=== PATIENT | male | born 1950 | race Caucasian/White ===

== ENCOUNTER 2017-10-25 08:24 | Emergency (ER) | payer OTHER, MEDICARE ==
[~2017-10-25] VITALS: Ht 167.6 cm; Wt 83.9 kg
[2017-10-25 08:27] VITALS: BP 174/98
--- NOTE | 2017-10-25 09:26 | ED MVC/FALL/TRAUMA COMPLAINT ---
History of Present Illness General Chief Complaint: Laceration Procedure Stated Complaint: NOSE LAC Source: patient Exam Limitations: no limitations Vital Signs & Intake/Output Vital Signs & Intake/Output Vital Signs Date Time Temp Pulse Resp B/P B/P Pulse O2 O2 Flow FiO2 Mean Ox Delivery Rate 10/25 0827 98.6 60 18 174/98 98 Room Air Allergies Coded Allergies: ibuprofen (Severe, BLACK OUT 10/25/17) shellfish derived (UNKNOWN 10/25/17) Reconcile Medications Cephalexin (Keflex) 500 MG CAPSULE 1 CAP PO BID NASAL FRACTURE/LACERATION Triage Note: 66 YO MALE TO TRIAGE FOR EVAL OF LACERATION TO NOSE. STATES HE TRIPPED THIS AM AND LANDED ON HIS NOSE AND "HEARD A CRUNCH" PT NOTED WITH LACERATION ON NOSE, BLEEDING CONTROLLED. DENIES PAIN. Triage Nurses Notes Reviewed? yes Onset: Abrupt Duration: constant Timing: single episode today Severity: mild Severity Numbers: 3 HPI: Patient is a 66-year-old male who since emergency room saying that today he got out of bed trying to put his shorts on and abruptly lost his balance and fell for STRIKING his face and nose to the floor. Patient acute onset of localized nose pain and swelling and bleeding had occurred. Denies any loss of consciousness denies any neck or back pain or extremity pain. Tetanus is up-to- date. Patient denies any preceding episode of lightheaded sensation or dizziness. (Adonay Albarran) Past History Travel History Traveled to [place] past 21 day No Medical History Any Pertinent Medical History? see below for history Neurological: NONE EENT: NONE Cardiovascular: NONE Respiratory: NONE Gastrointestinal: NONE Hepatic: NONE Renal: NONE Musculoskeletal: NONE Psychiatric: NONE Endocrine: NONE, hypothyroidism Blood Disorders: NONE Cancer(s): NONE CURTAIN MENDER/Reproductive: NONE Surgical History Surgical History: non-contributory Psychosocial History What is your primary language Slovenian Tobacco Use: Never used Family History Hx Contributory? No (Adonay Albarran) Review of Systems Review of Systems Constitutional: Reports: no symptoms. Eyes: Reports: no symptoms. Ears, Nose, Throat, Mouth: Reports: see HPI. Respiratory: Reports: no symptoms. Cardiovascular: Reports: no symptoms. Gastrointestinal/Abdominal: Reports: no symptoms. Genitourinary: Reports: no symptoms. Musculoskeletal: Reports: see HPI. Skin: Reports: see HPI. Neurological/Psychological: Reports: no symptoms. All Other Systems: Reviewed and Negative (Shira FRANKLIN,Adonay) Physical Exam Physical Exam General Appearance: no apparent distress, alert, comfortable Head: atraumatic Eyes: Bilateral: normal appearance, PERRL, EOMI. Ears, Nose, Throat, Mouth: hearing grossly normal, moist mucous membrane, Tympanic normal Neck: normal inspection, supple, full range of motion, no midline tenderness Respiratory: no respiratory distress Cardiovascular: regular rate/rhythm Gastrointestinal: normal bowel sounds, soft, non-tender Back: no vertebral tenderness Extremities: normal range of motion Neurologic/Psych: no motor/sensory deficits, awake Diagram Head: 1) Noted mild swelling with 5 mm superficial irregular laceration with adjacent skin avulsion superficial approximate 3 mm 2) Noted right nares dried blood nares are patent Core Measures ACS in differential dx? No CVA/TIA Diagnosis No Sepsis Present: No Sepsis Focused Exam Completed? No (Shira FRANKLIN,Adonay) Progress Differential Diagnosis: C/T/L spine injury, ext injury, ICH, pelvis injury, pnemothorax, spinal cord injury, FRACTURE Plan of Care: Orders Procedure Date/time Status CT HEAD WO IV CONTRAST 10/25 834 Active Nexus criteria ZERO PT DECLINES PAIN MEDICATIONS WHEN OFFERED. L.E.T was initially applied to the nose The nasal bridge was irrigated with sterile water and Betadine was applied for sterile technique then using #3, 6-0 sutures margins were revised patient tolerated well Bacitracin bandage was applied Discussed with patient of the mildly displaced nasal bone fractures, patient on prophylactic would be administered antibiotics. Upon discharge patient looks well no apparent distress has normal steady gait and has no questions patient does live in [place] and he will follow up when he returns He was given copy of CT scan for follow-up Diagnostic Imaging: Viewed by Me: CT Scan. Radiology Impression: acute abnormality Comments: PATIENT: SANTOS CHAN PRESENT AGE: 66 PATIENT ACCOUNT NO: [id number] : 51 LOCATION: [facility] ORDERING PHYSICIAN: Adonay FRANKLIN SERVICE DATE: 10/25/17 EXAM TYPE: CAT - CT MAXILLOFACIAL W/O CON Addendum: EXAMINATION: CT HEAD WITHOUT CONTRAST CLINICAL INFORMATION: Headache status-post trauma. COMPARISON: None TECHNIQUE: Contiguous axial imaging was performed from the skull base to vertex without intravenous administration of contrast. DLP: 1374.38 mGy-cm (head and facial bones) FINDINGS: There is no evidence of acute intracranial hemorrhage or territorial infarction. No abnormal mass effect or midline shift is seen. Garcia to white matter differentiation is well preserved. No extra-axial fluid collections are identified. The ventricles are normal in size. There is no abnormal attenuation within the brain parenchyma. There are carotid calcifications of the skull base vasculature. The osseous structures and soft tissues are normal. The mastoid air cells and visualized portions of the paranasal sinuses are well aerated. IMPRESSION: No acute intracranial pathology. Addendum Signed by: Jose Manuel Thompson MD 10/25/17 1032 EXAMINATION: CT MAXILLOFACIAL WITHOUT CONTRAST CLINICAL INFORMATION: Facial pain status-post trauma. COMPARISON: None TECHNIQUE: Multidetector helical imaging was performed in the axial plane with generation of coronal and sagittal reformatted images. DLP: 1374.38 mGy-cm (head and facial bones) FINDINGS: FRONTAL SINUSES AND DRAINAGE PATHWAYS: Normal. MAXILLARY SINUSES AND DRAINAGE PATHWAYS: There is mild mucosal thickening of the posteromedial left maxillary sinus. The right maxillary sinus appears clear. The bilateral ostiomeatal units appear patent, with the right somewhat narrowed by mucosal thickening. ETHMOID SINUSES: There is mucosal thickening of numerous of the bilateral ethmoid air cells. SPHENOID SINUSES AND DRAINAGE PATHWAYS: Normal. ADDITIONAL RELEVANT FINDINGS: There are slightly displaced bilateral nasal bone fractures. The lamina papyracea are intact. The nasal passages are clear. There is a slight leftward nasal septal deviation. The carotid canals are normally covered by bone. The ethmoid roofs are symmetric. No periapical disease is seen. The TMJs and orbits are normal. The visualized mastoid air cells are clear. IMPRESSION: 1. Mildly displaced bilateral nasal bone fractures are seen. 2. There is mild bilateral ethmoid and left maxillary sinusitis. 3. The bilateral ostiomeatal units appear patent, with the right somewhat narrowed by mucosal thickening. DICTATED BY: Donna CASTRO,Jose Manuel Hoffman DATE/TIME DICTATED:10/25/171004 TURKISH RUBBER:JAMES DATE/TIME TRANSCRIBED:10/25/171004 (Adonay Albarran) Departure Departure Disposition: HOME OR SELF CARE Condition: Stable Clinical Impression Primary Impression: Laceration of nose Secondary Impressions: Fall, Nasal bone fracture Referrals: Patient Has No Primary Care Dr (PCP/Family) Additional Instructions: As discussed begin [id number] Tylenol or Motrin for pain and inflammation, apply bacitracin to the region once a day for the following 4 days then the area open to improve healing keep the laceration site on exposed from UV sunlight. If you note signs of infection redness, pain, swelling, discharge return to emergency room. Return to emergency room in 7 days for suture removal When YOU return to [place] please follow-up with your nose and throat doctor Begin the prescription of Keflex to prevent infection. Prescriptions waiting at [facility] pharmacy Departure Forms: Customer Survey General Discharge Information Prescriptions: Current Visit Scripts Cephalexin (Keflex) 1 CAP PO BID #[id number] CAP (Adonay Albarran) PA/RUBBER AND PLASTICS WORKER Co-Sign Statement Statement: ED Attending supervision documentation- [X] I saw and evaluated the patient. I have also reviewed all the pertinent lab results and diagnostic results. I agree with the findings and the plan of care as documented in the PA's/RUBBER AND PLASTICS WORKER's documentation. Patient presents for evaluation of injury sustained status post fall. Physical examination reveals a laceration and swelling of the nasal bridge. [] I have reviewed the ED Record and agree with the PA's/RUBBER AND PLASTICS WORKER's documentation. [] Additions or exceptions (if any) to the PAs/RUBBER AND PLASTICS WORKER's note and plan are summarized below: [] (Esther CASTRO,Kahlil Ronquillo)
--- NOTE | 2017-10-25 10:15 | CT SCAN REPORT ---
EXAMINATION: CT MAXILLOFACIAL WITHOUT CONTRAST CLINICAL INFORMATION: Facial pain status-post trauma. COMPARISON: None TECHNIQUE: Multidetector helical imaging was performed in the axial plane with generation of coronal and sagittal reformatted images. DLP: 1374.38 mGy-cm (head and facial bones) FINDINGS: FRONTAL SINUSES AND DRAINAGE PATHWAYS: Normal. MAXILLARY SINUSES AND DRAINAGE PATHWAYS: There is mild mucosal thickening of the posteromedial left maxillary sinus. The right maxillary sinus appears clear. The bilateral ostiomeatal units appear patent, with the right somewhat narrowed by mucosal thickening. ETHMOID SINUSES: There is mucosal thickening of numerous of the bilateral ethmoid air cells. SPHENOID SINUSES AND DRAINAGE PATHWAYS: Normal. ADDITIONAL RELEVANT FINDINGS: There are slightly displaced bilateral nasal bone fractures. The lamina papyracea are intact. The nasal passages are clear. There is a slight leftward nasal septal deviation. The carotid canals are normally covered by bone. The ethmoid roofs are symmetric. No periapical disease is seen. The TMJs and orbits are normal. The visualized mastoid air cells are clear. IMPRESSION: 1. Mildly displaced bilateral nasal bone fractures are seen. 2. There is mild bilateral ethmoid and left maxillary sinusitis. 3. The bilateral ostiomeatal units appear patent, with the right somewhat narrowed by mucosal thickening.
--- NOTE | 2017-10-25 10:38 | CT SCAN REPORT ---
Please see competent combined report of the same date for CT MAXILLOFACIAL WITHOUT CONTRAST and CT HEAD WITHOUT CONTRAST.
[2017-10-25] MEDS ORDERED: KEFLEX500 M1 PO (10:42)
== END 2017-10-25 10:54 ==
LOC: ERH 08:24
DX: S02.2XXA Fracture of nasal bones, initial encounter for closed fracture (principal); S01.21XA Laceration without foreign body of nose, initial encounter; W19.XXXA Unspecified fall, initial encounter; Y93.E9 Activity, other interior property and clothing maintenance; Y92.9 Unspecified place or not applicable